=== PATIENT | male | born 1950 | race Caucasian/White ===

== ENCOUNTER 2018-12-10 09:29 | Outpatient (REF) | payer MEDICARE, MEDICAID, SELFPAY ==
[2018-12-10 21:12] LABS: HCT 44.8 % (40.0-50.0); HGB 15.4 g/dL (13.5-17.5); Mean Corp. HGB Concentration 34.4 g/dL (32.0-36.0); Mean Corpuscular Hemoglobin 30.8 pg (27.0-33.0); Mean Corpuscular Volume 89.6 fL (80-95); Mean Platelet Volume 10.6 fL (8.0-11.0); Platelet Count 245 x1000/uL (130-400); White Blood Cell Count 5.82 k/cumm (4.4-10.8)
[2018-12-10 21:37] LABS: ALT 52 U/L (12-78); AST 29 U/L (15-37); Alkaline Phosphatase 70 U/L (46-116); Anion Gap 14.1 mmol/L (3-11); BUN 26 mg/dL (7-18); Bilirubin, Total 0.6 mg/dL (0.2-1.0); CO2 21.9 mmol/L (21.0-32.0); CREATININE 1.02 mg/dL (0.70-1.30); Chloride 107 mmol/L (98-107); Glucose 97 mg/dL (70-100); Potassium 4.5 mmol/L (3.5-5.1); Sodium 143 mmol/L (136-145); TSH 1.54 uIU/mL (0.36-3.74); Total Protein 7.3 g/dL (6.4-8.2)
== END 2018-12-10 09:49 ==
LOC: NCHCN 09:29
PROVIDERS: PCP Specialist/Technologist Athletic Trainer; Visit Provider Nurse Practitioner Family
DX: R42 Dizziness and giddiness (principal); L29.9 Pruritus, unspecified; H93.19 Tinnitus, unspecified ear
CPT/HCPCS: 80053; 85027; 84443

== ENCOUNTER → 2019-01-04 08:02 | Outpatient (BNVA) | payer MEDICARE, MEDICAID, SELFPAY | PROVIDERS: PCP Specialist/Technologist Athletic Trainer; Visit Provider Urology | DX: N43.40 Spermatocele of epididymis, unspecified (principal); Z71.89 Other specified counseling | CPT/HCPCS: 99213 ==

== ENCOUNTER 2019-04-30 09:26 | Outpatient (REF) | payer MEDICARE, SELFPAY ==
[2019-04-30 19:46] LABS: Calculated LDL 150 mg/dL; Cholesterol 205 mg/dL (<200); HDL Cholesterol 34 mg/dL (40-60); Triglyceride 107 mg/dL (<150)
== END 2019-04-30 09:46 ==
LOC: NCHCN 09:26
PROVIDERS: PCP Specialist/Technologist Athletic Trainer; Visit Provider Nurse Practitioner Family
DX: E78.89 Other lipoprotein metabolism disorders (principal); Z13.6 Encounter for screening for cardiovascular disorders
CPT/HCPCS: 80061

== ENCOUNTER 2019-07-12 08:59 | Outpatient (REF) | payer MEDICARE, MEDICAID, SELFPAY ==
[2019-07-12 19:43] LABS: ALT 42 U/L (16-63); AST 26 U/L (15-37); Calculated LDL 145 mg/dL (<100); Cholesterol 200 mg/dL (<200); HDL Cholesterol 40 mg/dL (40-60); Triglyceride 78 mg/dL (<150)
[2019-07-12 20:35] LABS: Creatine Kinase 296 U/L (39-308)
== END 2019-07-12 09:19 ==
LOC: NCHCN 08:59
PROVIDERS: PCP Specialist/Technologist Athletic Trainer; Visit Provider Nurse Practitioner Family
DX: E78.5 Hyperlipidemia, unspecified (principal); L84 Corns and callosities
CPT/HCPCS: 80061; 82550; 84450; 84460

== ENCOUNTER 2020-05-24 15:33 | Outpatient (REF) | payer MEDICARE, SELFPAY ==
[2020-05-24 17:07] LABS: Anion Gap 13.1 mmol/L (3-11); BUN 18 mg/dL (7-18); CO2 22.9 mmol/L (21.0-32.0); Chloride 107 mmol/L (98-107); Creatine Kinase 303 U/L (39-308); Glucose 98 mg/dL (74-106); Potassium 3.9 mmol/L (3.5-5.1); Sodium 143 mmol/L (136-145); TSH 1.26 uIU/mL (0.36-3.74)
[2020-05-24 17:55] LABS: Calculated LDL 126 mg/dL (<100); Cholesterol 185 mg/dL (<200); HDL Cholesterol 43 mg/dL (40-60); Triglyceride 81 mg/dL (<150)
== END 2020-05-24 15:34 | disposition home or self-care (01) ==
LOC: NCHCN 15:33
PROVIDERS: PCP Specialist/Technologist Athletic Trainer; Visit Provider Nurse Practitioner Family
DX: E78.5 Hyperlipidemia, unspecified (principal); R42 Dizziness and giddiness
CPT/HCPCS: 80048; 80061; 82550; 84443

== ENCOUNTER 2020-07-19 02:06 | Outpatient (CLI) | payer MEDICARE, MEDICAID, SELFPAY ==
--- NOTE | 2020-07-19 | DI.MRI_ITS ---
EXAM: MR BRAIN WO CLINICAL HISTORY: VERTIGO,R42,VISION CHANGES,H53.9,H/O CERVICAL OA,HYPERTENSION,? TIA/STROKE TECHNIQUE: Multiplanar multisequence noninfused MRI of the brain was performed. COMPARISON: No exams were available for comparison FINDINGS: CEREBRAL PARENCHYMA: No evidence of intracranial hemorrhage, mass effect nor shift of midline structu re. No extraaxial fluid collections. Ventricles are not enlarged nor shifted. There is no significant focal signal abnormality in the cerebellar hemispheres nor within the rafi, m idbrain, and thalami. There is mild multifocal signal abnormality in the white matter adjacent to the atrium of both latera l ventricles, probably post ischemic but without acute signal on diffusion imaging. There is also a small CSF intensity finding in the left high white matter above ventricle which measures 3 x 2 millim eters, not associated with hemorrhage or surrounding edema nor abnormal signal on diffusion imaging. This probably chronic lacune. There is no significant focal signal abnormality evident on diffusion imaging to suggest acute ischem ic event. PITUITARY GLAND: No mass nor parasellar abnormality. No obvious abnormality in the cavernous sinuses. FLOW VOIDS: The expected flow void are noted. No evidence of obvious aneurysm nor obvious vascular ma lformation. The left vertebral artery is dominant. PARANASAL SINUSES: There is a small retention cyst in the medial wall of the right maxillary sinus. No fluid level. The frontal sinuses are not developed. ORBITS: No obvious findings. IMPRESSION: Nonspecific white matter findings probably post ischemic chronic small vessel disease. No evidence o f intracranial hemorrhage or acute territorial infarction. DATA REPOSITORY:
== END 2020-07-19 02:26 ==
PROVIDERS: PCP Nurse Practitioner Family; Visit Provider Nurse Practitioner Family
DX: R42 Dizziness and giddiness (principal); H53.8 Other visual disturbances; I10 Essential (primary) hypertension; R90.82 White matter disease, unspecified
CPT/HCPCS: 70551

== ENCOUNTER 2020-07-26 13:56 | Outpatient (REF) | payer MEDICARE, MEDICAID, SELFPAY ==
[2020-07-26 18:44] LABS: ALT 44 U/L (16-63); AST 30 U/L (15-37); HDL Cholesterol 47 mg/dL (40-60); LDL CHOLESTEROL 68 mg/dL (<100)
[2020-07-26 18:55] LABS: Creatine Kinase 302 U/L (39-308)
== END 2020-07-26 13:57 | disposition home or self-care (01) ==
LOC: NCHCN 13:56
PROVIDERS: PCP Nurse Practitioner Family; Visit Provider Nurse Practitioner Family
DX: E78.5 Hyperlipidemia, unspecified (principal)
CPT/HCPCS: 82550; 83721; 83718; 84450; 84460

== ENCOUNTER 2020-08-04 04:19 | Outpatient (CLI) | payer MEDICARE, MEDICAID, SELFPAY ==
--- NOTE | 2020-08-04 | DI.US_ITS ---
EXAM: US CAROTID CLINICAL HISTORY: VERTIGO,ABNL BRAIN MRI,? POST ISCHEMIC AREAS,HLP. TECHNIQUE: Ultrasound carotids performed using grayscale, color-flow, and spectral Doppler imaging. COMPARISON: No exams were available for comparison FINDINGS: RIGHT CAROTID ARTERY: Plaque: Minimal plaque in the carotid bulb. Intimal thickening is present. Velocity elevation: None. LEFT CAROTID ARTERY: Plaque: Minimal plaque in the carotid bulb. Intimal thickening is present. Velocity elevation: None. VERTEBRAL ARTERIES: Antegrade flow. Measurements: R Bulb: 67.5cm/s PS / 18.6cm/s ED R CCA: 63cm/s PS / 17.4cm/s ED R ECA: 93cm/s PS / 23cm/s ED R ICA Prox: 62.3cm/s PS /18.6cm/s ED R ICA Mid: 69.4cm/s PS / 33.4cm/s ED R ICA Distal: 67.8cm/s PS /30.5cm/s ED R Vert: 28.1cm/s PS / 7.9cm/s ED R SVR: 1.1 R DVR: 1.92 L Bulb: 39cm/s PS /10.1cm/s ED L CCA: 51.2cm/s PS / 15.3cm/s ED L ECA: 118.8cm/s PS /18.9cm/s ED L ICA Prox:58.5cm/s PS / 23.1cm/s ED L ICA Mid: 59cm/sPS / 26.8cm/s ED L ICA Distal: 76.3cm/s PS / 33.6cm/s ED L Vert: 32.3cm/s PS / 11.4cm/s ED L SVR: 1.49 L DVR: 2.2 IMPRESSION: No evidence for hemodynamically significant carotid stenosis. Criteria for Carotid Stenosis: Normal: ICA PSV <125 cm/s no plaque or intimal thickening is visible. <50% stenosis: ICA PSV <125 cm/s and plaque or intimal thickening is visible. 50-69% stenosis: ICA PSV is 125-250 cm/s and plaque is visible. >70% stenosis to near occlusion: ICA PSV >250 cm/s with visible plaque and luminal narrowing. DATA REPOSITORY:
== END 2020-08-04 04:39 ==
PROVIDERS: PCP Nurse Practitioner Family; Visit Provider Nurse Practitioner Family
DX: R42 Dizziness and giddiness (principal); R94.02 Abnormal brain scan
CPT/HCPCS: 93880

== ENCOUNTER 2020-10-04 04:28 | Outpatient (CLI) | payer MEDICARE, MEDICAID, SELFPAY ==
[2020-10-04 12:10] LABS: Abs Immature Grans 0.02 10^3/uL (0.0-0.06); Absolute Basophil Count 0.05 10^3/uL (0.0-0.2); Absolute Eosinophil Count 0.26 10^3/uL (0.0-0.7); Absolute Lymphocyte Count 1.81 10^3/uL (1.2-3.4); Absolute Monocyte Count 0.49 10^3/uL (0.1-0.8); Absolute Neutrophil Count 4.63 10^3/uL (1.2-6.7); Basophils % 0.7; Eosinophils % 3.6; HCT 45.1 % (40.0-50.0); HGB 15.6 g/dL (13.5-17.5); Immature Grans % 0.3; Lymphocytes % 24.9; MCH 31.1 pg (27.0-33.0); MCHC 34.6 % (32.0-36.0); MPV 9.7 fL (8.0-11.0); Monocytes % 6.7; Neutrophils % 63.8; Nucleated RBC 0 %; Platelet Count 238 10^3/uL (130-400); RBC 5.01 10^6/uL (4.36-5.78); RDW 12.2 % (11.8-14.1); RDW-SD 39.8 fL; WBC 7.26 10^3/uL (4.4-10.8)
[2020-10-04 13:14] LABS: Calculated LDL 91 mg/dL (<100); Cholesterol 158 mg/dL (<200); Folate 12.2 ng/mL (8.6-20.0); Glucose 100 mg/dL (74-106); HDL Cholesterol 47 mg/dL (40-60); TSH 1.83 uIU/mL (0.36-3.74); Triglyceride 100 mg/dL (<150); Vitamin B12 232 pg/mL (193-986)
[2020-10-05 11:11] LABS: Lyme Ab w Rflx to Lyme Confirm Negative (Negative)
[2020-10-05 14:00] LABS: ANA Interpretation Positive (Negative); ANA Titer Pattern 1:80 Speckled
== END 2020-10-04 04:29 | disposition home or self-care (01) ==
LOC: LBO 04:28
PROVIDERS: PCP Nurse Practitioner Family; Visit Provider Otolaryngology Otolaryngology/Facial Plastic Surgery
DX: R42 Dizziness and giddiness (principal); H43.393 Other vitreous opacities, bilateral; E78.5 Hyperlipidemia, unspecified; I10 Essential (primary) hypertension
CPT/HCPCS: 36415; 80061; 82947; 82565; 82607; 82746; 84443; 85025; 86038; 86618

== ENCOUNTER 2020-11-27 11:08 | Outpatient (REF) | payer MEDICARE, SELFPAY ==
[2020-11-27 20:20] LABS: ESR 16 mm/hr (0-20)
[2020-11-27 20:23] LABS: C-Reactive Protein 0.42 mg/dL (0.0-0.3)
== END 2020-11-27 11:09 | disposition home or self-care (01) ==
LOC: NCHCN 11:08
PROVIDERS: PCP Nurse Practitioner Family; Visit Provider Nurse Practitioner Family
DX: R89.9 Unspecified abnormal finding in specimens from other organs, systems and tissues (principal)
CPT/HCPCS: 85652; 86140

== ENCOUNTER 2020-11-27 14:09 | Outpatient (CLI) | payer MEDICARE, MEDICAID, SELFPAY ==
--- NOTE | 2020-11-27 | DI.RAD_ITS ---
Exam(s) XR ARTHRITIS SERIES EXAM: XR ARTHRITIS SERIESz CLINICAL HISTORY: JOINT PAIN M79.643 RHEUMATOID NODULES + ARIELLE. TECHNIQUE: 2D digital imaging was performed. COMPARISON: No exams were available for comparison FINDINGS: BONES: There is 20 base narrowing involving the interphalangeal joints of the fingers, greater in the distal interphalangeal joints. Joint space narrowing and spurring is also seen at the 1st carpal me tacarpal joints, greater on the left.. No acute fracture is present. Lucency the tuft of the the dis mohamud phalanx of the left 4th finger. JOINTS: No dislocation present. SOFT TISSUE: Mild calcification region of triangular fibrocartilage bilaterally. Calcification milad cent to the left 1st metacarpophalangeal joint, left 1st and 3rd carpal metacarpal joints and adjacen t to left radial styloid. IMPRESSION: Findings consistent with osteo arthritis at the 1st CMC joints bilaterally left greater than right.. Blessing articular soft tissue calcifications on the left. DATA REPOSITORY: RADIATION DOSE DELIVERED:
== END 2020-11-27 14:29 ==
PROVIDERS: PCP Nurse Practitioner Family; Visit Provider Nurse Practitioner Family
DX: M79.89 Other specified soft tissue disorders (principal); M06.349 Rheumatoid nodule, unspecified hand; M79.643 Pain in unspecified hand
CPT/HCPCS: 73120

== ENCOUNTER 2021-03-06 15:55 | Outpatient (REF) | payer MEDICARE, MEDICAID, SELFPAY ==
[2021-03-06 20:19] LABS: Bacteria Negative HPF (Negative); C & S Indicated? C&S Done As Ordered; Casts Negative LPF (Negative); Crystals Negative HPF (Negative); Epithelial Cells Negative HPF (Negative); Mucus Negative (Negative); Other Cells Negative (Negative); RBC 0-2 HPF (0-2); WBC 0-2 HPF (0-5)
[2021-03-06 20:28] LABS: HCT 43.6 % (40.0-50.0); HGB 14.8 g/dL (13.5-17.5); MCH 30.6 pg (27.0-33.0); MCHC 33.9 % (32.0-36.0); MCV 90.1 fL (80-95); MPV 10.9 fL (8.0-11.0); Platelet Count 225 10^3/uL (130-400); RBC 4.84 10^6/uL (4.36-5.78); RDW 11.9 % (11.8-14.1); RDW-SD 39.2 fL; WBC 8.13 10^3/uL (4.4-10.8)
[2021-03-06 20:44] LABS: Anion Gap 11.4 mmol/L (3-11); BUN 17 mg/dL (7-18); CO2 26.6 mmol/L (21.0-32.0); Calcium 8.9 mg/dL (8.5-10.1); Chloride 106 mmol/L (98-107); Glucose 83 mg/dL (74-106); Potassium 4.1 mmol/L (3.5-5.1); Sodium 144 mmol/L (136-145)
[2021-03-07 17:29] LABS: PSA, Diagnostic 1.5 ng/mL (0.0-4.5)
== END 2021-03-06 15:56 | disposition home or self-care (01) ==
LOC: NCHCN 15:55
PROVIDERS: PCP Nurse Practitioner Family; Visit Provider Nurse Practitioner Family
DX: R39.9 Unspecified symptoms and signs involving the genitourinary system (principal); Z01.818 Encounter for other preprocedural examination
CPT/HCPCS: 80048; 85027; 81015; 84153; 87086

== ENCOUNTER 2021-10-04 18:09 | Outpatient (REF) | payer MEDICARE, SELFPAY ==
[2021-10-04 15:24] LABS: Abs Immature Grans 0.01 10^3/uL (0.0-0.06); Absolute Basophil Count 0.04 10^3/uL (0.0-0.2); Absolute Eosinophil Count 0.13 10^3/uL (0.0-0.7); Absolute Lymphocyte Count 1.66 10^3/uL (1.2-3.4); Absolute Monocyte Count 0.42 10^3/uL (0.1-0.8); Absolute Neutrophil Count 3.32 10^3/uL (1.2-6.7); Basophils % 0.7; Eosinophils % 2.3; HGB 14.6 g/dL (13.5-17.5); Immature Grans % 0.2; Lymphocytes % 29.7; MCH 31.1 pg (27.0-33.0); MCHC 34.8 % (32.0-36.0); MCV 89 fL (80-95); MPV 10.1 fL (8.0-11.0); Monocytes % 7.5; Neutrophils % 59.6; Platelet Count 244 10^3/uL (130-400); RDW 12.1 % (11.8-14.1); RDW-SD 39.6 fL; WBC 5.58 10^3/uL (4.4-10.8)
[2021-10-04 16:06] LABS: ALT 50 U/L (16-63); AST 30 U/L (15-37); Albumin 3.8 g/dL (3.4-5.0); Alkaline Phosphatase 72 U/L (46-116); Anion Gap 11.1 mmol/L (3-11); BUN 20 mg/dL (7-18); Bilirubin, Total 0.5 mg/dL (0.2-1.0); CO2 21.9 mmol/L (21.0-32.0); CREATININE 1.2 mg/dL (0.70-1.30); Calcium 8.6 mg/dL (8.5-10.1); Chloride 108 mmol/L (98-107); Estimated GFR 59.86 (mL/min/1.73m2); Ferritin 181 ng/mL (26-388); Glucose 105 mg/dL (74-106); HDL Cholesterol 48 mg/dL (40-60); LDL CHOLESTEROL 81 mg/dL (<100); Magnesium 1.8 mg/dL (1.8-2.4); Sodium 141 mmol/L (136-145); TSH 1.66 uIU/mL (0.36-3.74); Vitamin B12 733 pg/mL (193-986)
[2021-10-04 16:34] LABS: Creatine Kinase 201 U/L (39-308); FREE T4 0.88 ng/dL (0.76-1.46)
== END 2021-10-04 18:10 | disposition home or self-care (01) ==
LOC: NCHCN 18:09
PROVIDERS: PCP Nurse Practitioner Family; Visit Provider Nurse Practitioner Family
DX: E78.5 Hyperlipidemia, unspecified (principal); R42 Dizziness and giddiness
CPT/HCPCS: 80053; 82550; 83721; 82607; 82728; 83718; 83735; 84439; 84443; 85025

== ENCOUNTER 2022-04-04 11:54 | Outpatient (REF) | payer MEDICARE, SELFPAY ==
[2022-04-04 15:26] LABS: HCT 44.3 % (40.0-50.0); HGB 15.2 g/dL (13.5-17.5); MCH 30.5 pg (27.0-33.0); MCHC 34.3 % (32.0-36.0); MCV 89 fL (80-95); MPV 10.5 fL (8.0-11.0); Platelet Count 225 10^3/uL (130-400); RBC 4.98 10^6/uL (4.36-5.78); RDW 12.2 % (11.8-14.1); RDW-SD 39.8 fL; WBC 7.86 10^3/uL (4.4-10.8)
[2022-04-04 15:30] LABS: ESR 8 mm/hr (0-20)
[2022-04-04 15:46] LABS: C-Reactive Protein 0.07 mg/dL (0.0-0.3)
[2022-04-05 10:07] LABS: Lyme Ab w Rflx to Lyme Confirm Negative (Negative)
== END 2022-04-04 11:55 | disposition home or self-care (01) ==
LOC: NCHCN 11:54
PROVIDERS: PCP Nurse Practitioner Family; Visit Provider Nurse Practitioner Family
DX: H92.01 Otalgia, right ear (principal); R42 Dizziness and giddiness
CPT/HCPCS: 85027; 85652; 86140; 86618

== ENCOUNTER 2022-04-30 01:40 | Outpatient (CLI) | payer MEDICARE, SELFPAY ==
--- NOTE | 2022-04-30 | DI.MRI_ITS ---
Exam(s) MR ORBIT FACIAL NECK WO/W EXAM: MR ORBIT FACIAL NECK WO/W CLINICAL HISTORY: SCALP PAIN,R52,RT OTALGIA,H92.01,? TRIGEMINAL NEURALGIA TECHNIQUE: Multiplanar multisequence MRI of the brain was performed. CONTRAST MATERIAL: IV Contrast: 20 mL of Dotarem contrast administered. COMPARISON: MR MR BRAIN WO from 07/19/2020 FINDINGS: The examination is limited due to patient motion artifact. VENTRICLES AND EXTRA AXIAL SPACES: Normal in size and morphology for the patient's age. CEREBRAL PARENCHYMA: There are stable foci of hyperintense signal seen in the white matter on the FLA IR images likely reflecting small vessel ischemic disease. No space-occupying lesion identified. MIDLINE SHIFT: None. BRAINSTEM/CEREBELLUM: Normal. CALVARIUM: Normal. ENHANCEMENT: No suspicious enhancement identified. VISUALIZED PARANASAL SINUSES/MASTOIDS: There is a small mucous retention cyst or polyp in the right m axillary sinus. There is mild mucosal thickening in the visualized paranasal sinuses. No air-fluid levels are seen. [place]: Normal flow void. PITUITARY GLAND: Unremarkable. OTHER FINDINGS: The midbrain and cranial nerve 5 appear grossly unremarkable. Meckel's cave is unrem arkable. The orbits and retro-orbital soft tissues are unremarkable. IMPRESSION: 1. No intracranial mass or enhancing lesion. 2. Stable white matter hyperintense foci likely reflecting small vessel ischemic disease. DATA REPOSITORY:
[2022-04-30 08:25] LABS: CREATININE 1.1 mg/dL (0.70-1.30); Estimated GFR 71.77 (mL/min/1.73m2); TROPONIN-I 6.1 ug/mL (4.0-12.0)
[2022-04-30] MEDS: Normal Saline Flush 10 ML SYR IVP (08:31)
[2022-04-30] MEDS: Gadoterate meglumine 20 ML SYRINGE IVP (08:32)
== END 2022-04-30 02:00 ==
PROVIDERS: PCP Nurse Practitioner Family; Visit Provider Nurse Practitioner Family
DX: H92.01 Otalgia, right ear (principal); R52 Pain, unspecified
CPT/HCPCS: 70543; 80156; 82565

== ENCOUNTER 2023-02-19 10:33 | Outpatient (REF) | payer MEDICARE, SELFPAY ==
[2023-02-19 16:24] LABS: ALT 32 U/L (16-63); AST 28 U/L (15-37); Albumin 4.1 g/dL (3.4-5.0); Alkaline Phosphatase 72 U/L (46-116); Anion Gap 9.8 mmol/L (3-11); BUN 25 mg/dL (7-18); Bilirubin, Total 0.6 mg/dL (0.2-1.0); CO2 23.2 mmol/L (21.0-32.0); CREATININE 1.1 mg/dL (0.70-1.30); Calcium 9.4 mg/dL (8.5-10.1); Chloride 106 mmol/L (98-107); Creatine Kinase 188 U/L (39-308); Estimated GFR 71.77 (mL/min/1.73m2); Glucose 105 mg/dL (74-106); Sodium 139 mmol/L (136-145); Total Protein 7.7 g/dL (6.4-8.2)
[2023-02-19 16:37] LABS: HDL Cholesterol 51 mg/dL (40-60); LDL CHOLESTEROL 88 mg/dL (<100)
== END 2023-02-19 10:34 | disposition home or self-care (01) ==
LOC: NCHCN 10:33
PROVIDERS: PCP Nurse Practitioner Family; Visit Provider Nurse Practitioner Family
DX: E78.5 Hyperlipidemia, unspecified (principal)
CPT/HCPCS: 80053; 82550; 83721; 83718

== ENCOUNTER → 2023-02-20 01:16 | Outpatient (CLI) | payer MEDICARE, SELFPAY ==
--- NOTE | 2023-02-20 | DI.US_ITS ---
Exam(s) US CAROTID EXAM: US CAROTID CLINICAL HISTORY: DIZZY SPELLS, R42. TECHNIQUE: Ultrasound carotids performed using grayscale, color-flow, and spectral Doppler imaging. COMPARISON: US US CAROTID from 08/04/2020 FINDINGS: RIGHT CAROTID ARTERY: Plaque: There is calcific plaque seen in the common carotid artery, the proximal ICA and carotid bulb . Velocity elevation: None. LEFT CAROTID ARTERY: Plaque: There is calcific plaque seen in the carotid bulb. Velocity elevation: None. VERTEBRAL ARTERIES: Antegrade flow. Measurements: R Bulb: 57.3cm/s PS / 13.8cm/s ED R CCA: 87.4cm/s PS / 23.5cm/s ED R ECA: 125.8cm/s PS / 4.1cm/s ED R ICA Prox: 63.6cm/s PS / 18.3cm/s ED R ICA Mid: 69cm/s PS / 21.7cm/s ED R ICA Distal: 93.2cm/s PS /22.9cm/s ED R Vert: 12.6cm/s PS / 6.5cm/s ED R SVR: 1.1 R DVR: 1 L Bulb: 75cm/s PS / 20.6cm/s ED L CCA: PS / 24.5cm/s ED L ECA: 144.6cm/s PS / 6.1cm/s ED L ICA Prox: 60cm/s PS / 19.6cm/s ED L ICA Mid: 63.2cm/s PS / 20.9cm/s ED L ICA Distal: 73.7cm/s PS / 26cm/s ED L Vert: 68.8cm/s PS / 28.3cm/s ED L SVR: 0.9 L DVR: 0.8 IMPRESSION: No evidence for hemodynamically significant carotid stenosis. Criteria for Carotid Stenosis: Normal: ICA PSV <125 cm/s no plaque or intimal thickening is visible. <50% stenosis: ICA PSV <125 cm/s and plaque or intimal thickening is visible. 50-69% stenosis: ICA PSV is 125-250 cm/s and plaque is visible. >70% stenosis to near occlusion: ICA PSV >250 cm/s with visible plaque and luminal narrowing. DATA REPOSITORY:
== END ==
PROVIDERS: PCP Nurse Practitioner Family; Visit Provider Nurse Practitioner Family
DX: R42 Dizziness and giddiness (principal)
CPT/HCPCS: 93880

== ENCOUNTER 2023-07-29 08:27 | Outpatient (CLI) | payer MEDICARE, MEDICAID, SELFPAY | END 2023-07-29 08:28 | disposition home or self-care (01) | LOC: CARDOPNVT 08:27 | PROVIDERS: PCP Nurse Practitioner Family; Visit Provider Nurse Practitioner Family | DX: R07.9 Chest pain, unspecified (principal) | CPT/HCPCS: 93246 ==

== ENCOUNTER → 2023-07-31 13:15 | Outpatient (BNVA) | payer MEDICARE, SELFPAY | PROVIDERS: PCP Nurse Practitioner Family; Referring Provider Nurse Practitioner Family; Visit Provider Podiatrist | DX: M67.01 Short Achilles tendon (acquired), right ankle (principal); M67.02 Short Achilles tendon (acquired), left ankle; B35.1 Tinea unguium; L84 Corns and callosities; M79.671 Pain in right foot; M25.561 Pain in right knee | CPT/HCPCS: 99203 ==

== ENCOUNTER → 2023-07-31 15:02 | Outpatient (CLI) | payer MEDICARE, MEDICAID, SELFPAY ==
--- NOTE | 2023-07-31 15:15 | DI.RAD_ITS ---
Exam(s) XR FOOT RT COMPLETE EXAM: XR FOOT RT COMPLETE CLINICAL HISTORY: foot pain R > L, ? osteoarthritis,m79.673. TECHNIQUE: 2D digital imaging was performed of the right foot. Three images were obtained. AP, obl ique and lateral views were obtained. COMPARISON: No exams were available for comparison FINDINGS: BONES: No acute fracture is present. No bony destructive lesion is seen. There is a small enthesophyt e at the posterior calcaneus. There is a small plantar calcaneal spur. JOINTS: No dislocation present. Moderately severe degenerative changes are seen at the 1st metatarsop halangeal joint. There is an osteophyte on the dorsal aspect of the head of the 1st metatarsal bone. SOFT TISSUE: Vascular calcifications are present. IMPRESSION: Degenerative changes of the foot. DATA REPOSITORY: RADIATION DOSE DELIVERED:
--- NOTE | 2023-07-31 15:22 | DI.RAD_ITS ---
Exam(s) XR FOOT LT COMPLETE EXAM: XR FOOT LT COMPLETE CLINICAL HISTORY: foot pain R > L, ? osteoarthritis,M79.673. TECHNIQUE: 2D digital imaging was performed of the left foot. Three images were obtained. AP, obli que and lateral views were obtained. COMPARISON: No exams were available for comparison FINDINGS: BONES: No acute fracture is present. No bony destructive lesion is seen. There is a small enthesophyt e at the posterior calcaneus. JOINTS: No dislocation present. Moderately severe degenerative changes are seen at the 1st metatarsop halangeal joint. There is a small it size osteophyte on the dorsal aspect of the head. There is a w ell corticated osseous density seen at the dorsal aspect of the 1st MTP joint which appears chronic. SOFT TISSUE: Vascular calcifications are present. IMPRESSION: Degenerative changes of the foot. DATA REPOSITORY: RADIATION DOSE DELIVERED:
== END ==
PROVIDERS: PCP Nurse Practitioner Family; Visit Provider Podiatrist
DX: M79.671 Pain in right foot (principal); M79.672 Pain in left foot; M19.071 Primary osteoarthritis, right ankle and foot; M19.072 Primary osteoarthritis, left ankle and foot; M77.32 Calcaneal spur, left foot; M77.31 Calcaneal spur, right foot
CPT/HCPCS: 99203; 73630

== ENCOUNTER → 2023-08-18 01:07 | Outpatient (CLI) | payer MEDICARE, MEDICAID, SELFPAY ==
--- NOTE | 2023-08-18 | DI.NM_ITS ---
APPROVED REPORT Exam: Pharmacologic Patient Location: Out-Patient Room/Bed: Stress Nurse: Jaren Chapman RN Ordering Provider:WALTER DENNIS, Contact Number: [phone] BMI: 33.22 Baseline Rhythm: Sinus Rhythm Indications: Chest pain. Medical History Medical History: HLD, HTN. Cardiac Medications: Albuterol, Atorvastatin, ASA., Allergies: No known drug allergies Cardiac Risk Factors: HTN, Hyperlipidemia Pretest Chest Pain Characteristics: No chest pain Exercise History: Indeterminate Lung Sounds: Clear to auscultation Heart Sounds: Regular Stress Test Details Test: Pharmacologic stress was paired with low level exercise. Rest Isotope: Tc-99m Sestamibi. Dose: 10.5 Date: 08/18/2023 Injection Time: 0905 Stress Isotope: Tc-99m Sestamibi. Dose: 32.0 Date: 08/18/2023 Injection Time: 1120 HR Resting HR Supine: 59 bpm Max Heart Rate (APMHR): 148.816498 bpm Resting HR Standin bpm Target HR (85% APMHR): 125.726588 bpm Max HR Achieved: 102 bpm % of APMHR: 68.92 Recovery HR: 71 bpm HR response to stress: Normal HR response to stress BP Resting BP Supine: 162/82 mmHg Resting BP Standin/82 mmHg Max BP: 162/82 mmHg Recovery BP: 136/80 mmHg BP response to stress: Normal blood pressure response to stress. ECG Resting ECG: Sinus Rhythm Ectopy: Rare PAC's and PVC's. Stress ECG: Sinus Tachycardia, Sinus Rhythm ST Change: No significant ST segment changes noted Arrhythmia: Rare PAC's and PVC's. Recovery ECG: Sinus Rhythm Recovery Arrhythmia: None Clinical Reason for Termination: Fatigue Stress Symptoms: General Fatigue Exercise duration: 2 min58 sec Exercise capacity: 2.07 METs Angina Score: None Lowery Treadmill Score: 3.6 Rate Pressure Product: [id number] Stress ECG Conclusion 1. 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 Patient underwent testing using pharmacologic stress with regadenoson 3. The electrocardiographic portion of the test was nondiagnostic 4. Atrial and ventricular ectopic beats were noted 5. See MPI report Lowery Treadmill Score is 3.6 which is Moderate risk. Stress Test Summary STAGE HR BP SpO2 Symptoms NOTES Supine 59 162/82 Standing 62 152/82 1 min post Lexiscan injection 98 3 min post Lexiscan injection 76 140/72 6 min post Lexiscan injection 71 136/80 MPI Conclusion Myocardial perfusion is normal. There is no ischemia or evidence of prior infarction EF 50%, normal wall motion Radiologist Interpretation Radiologist agrees with [facility]'s Interpretation. Radiologist Interpretation by: Michael Arvizu MD Interpretation Date/Time: 08/20/2023 08:06:08
[2023-08-18] MEDS: Regadenoson 0.4 MG/5 ML SYR IVP (11:59)
== END ==
PROVIDERS: PCP Nurse Practitioner Family; Visit Provider Nurse Practitioner Family
DX: R07.9 Chest pain, unspecified (principal); I45.10 Unspecified right bundle-branch block; I44.4 Left anterior fascicular block; I49.3 Ventricular premature depolarization; I49.1 Atrial premature depolarization
CPT/HCPCS: 78452; 93016; 93018; 93017; J2785

== ENCOUNTER 2023-08-18 09:47 | Outpatient (CLI) | payer MEDICARE, MEDICAID, SELFPAY ==
--- NOTE | 2023-08-18 11:00 | W.CARDEVENT ---
Date of service: 08/18/23 Time of Service: 11:00 Cardiac Event Recorder Referring Provider:: Kyra Mendoza Indications:: Chest pain Cardiac Event Note: This is a cardiac event monitor. Patient was monitored for 12 days and 1 hour Rhythm throughout was sinus with an average heart rate of 66. Minimum was 35, maximum 124 There were rare ventricular ectopic beats. There was 1 run of nonsustained ventricular tachycardia 7 beats in length There were occasional atrial premature beats. Self-limited atrial runs occurred. The longest of these was 14 beats in duration. Majority were 4 to 6 beats There was no atrial fibrillation, no high-grade AV block, no pauses greater than 3 seconds Patient's symptoms correlated to sinus rhythm rate 98
== END 2023-08-18 09:48 | disposition home or self-care (01) ==
LOC: CARDOPNVT 09:47
PROVIDERS: PCP Nurse Practitioner Family; Visit Provider Internal Medicine Cardiovascular Disease
DX: R07.9 Chest pain, unspecified (principal); I49.1 Atrial premature depolarization; I47.10 Supraventricular tachycardia, unspecified
CPT/HCPCS: 93248

== ENCOUNTER 2023-09-30 08:41 | Emergency (ER) | payer MEDICARE, MEDICAID, SELFPAY ==
[2023-09-30 08:42] VITALS: BP 140/82; PULSE 67; RESP 15; TEMP 36.3; O2SAT 99
[2023-09-30 08:47] VITALS: BP 140/82; PULSE 67; RESP 15; O2SAT 99
--- NOTE | 2023-09-30 09:03 | W.ED.GENAD ---
Discharge Plan Disposition Patient Disposition: Home Condition: Stable Discharge Details Clinical Impression: Pneumonia due to COVID-19 virus Primary Care Provider: Bibi Yeung ED Provider: Payal Villar Home Meds and New Rx's Prescriptions: New doxycycline hyclate 100 mg capsule 100 mg PO BID 10 Days Qty: 20 0RF Rx Instructions: Take 1 capsule twice daily by mouth x 10 days with yogurt or probiotic as directed. Continued albuterol sulfate 90 mcg/actuation HFA aerosol inhaler 2 puff inhalation Q4[place] [address] plus 1.1% dental cream dental ketoconazole 2 % cream 1 applic topical DAILY Qty: 120 6RF Rx Instructions: Apply to toenails once daily aspirin 81 mg tablet,delayed release (DR/EC) 81 mg PO DAILY diclofenac potassium 50 mg tablet 50 mg PO TID PRN atorvastatin [Lipitor] 10 mg tablet 10 mg PO QHS multivitamin Tablet 1 tab PO DAILY meclizine 25 mg tablet 50 mg PO BID PRN cyanocobalamin (vitamin B-12) 500 mcg lozenge 500 mcg PO DAILY Discharge Instructions Instructions: COVID-19 overview, Pneumonia (ED) Additional Instructions: At this time you have been tested positive for COVID-19. Please take the antibiotic twice daily as directed with yogurt or probiotic. Follow up with primary care provider in7-10 days. Return to ED sooner if any worsening or concerns. Continue to wear a mask when out and about or around babies or the elderly. May consider purchasing a pulse oximeter to check your oxygen saturation. Please return to the ER if it continues to be less than 90% for at least 15 minutes or more. Continue to use your albuterol inhaler 1 or 2 puffs every 4-6 hours as needed for shortness of breath and wheezing. Referrals: Bibi Yeung [Primary Care Provider] - 2 weeks (For Covid Pneumonia re-check) HPI General Mode of arrival: ambulatory. Date/Time Provider Initiated Documentation: 09/30/23 08:45. Limitations to Documentation: no limitations. Information obtained by: patient, RN notes reviewed and old records reviewed. HPI Narrative: 73-year-old male presents to the ER with a chief complaint of productive cough and URI type symptoms for the last 3 weeks. He reports chills no documented fever. Denies any chest pain nausea vomiting or diarrhea. He has been taking Mucinex and aspirin at home. He also reports decreased appetite and she was losing 25 pounds in the last 2 weeks. He reports that his SO just recently recovered from a URI which was similar. He is alert and oriented x 4. PMHX Adjustment disorder, Kidney stones, and recently had a normal stress test approx 6 weeks ago. Related Data Home Medications Medication Instructions Recorded Confirmed aspirin 81 mg tablet,delayed 81 mg PO DAILY 11/06/22 07/31/23 release atorvastatin 10 mg tablet (Lipitor) 10 mg PO QHS 11/06/22 07/31/23 cyanocobalamin (vitamin B-12) 500 500 mcg PO DAILY 11/06/22 07/31/23 mcg lozenges diclofenac potassium 50 mg tablet 50 mg PO TID PRN 11/06/22 07/31/23 meclizine 25 mg tablet 50 mg PO BID PRN 11/06/22 07/31/23 multivitamin 1 tab PO DAILY 11/06/22 07/31/23 albuterol sulfate 90 mcg/actuation 2 puff inhalation Q4H PRN 07/28/23 07/31/[address] [place] [address] plus 1.1% dental cream dental 07/28/23 07/31/23 ketoconazole 2 % topical cream 1 applic topical DAILY #120 grams 07/31/23 07/31/23 doxycycline hyclate 100 mg capsule 100 mg PO BID Pneumonia 10 days 09/30/23 #20 caps Previous Rx's Medication Instructions Recorded ketoconazole 2 % topical cream 1 applic topical DAILY #120 grams 07/31/23 doxycycline hyclate 100 mg capsule 100 mg PO BID Pneumonia 10 days 09/30/23 #20 caps Allergies Allergy/AdvReac Type Severity Reaction Status Date / Time No Known Allergies Allergy Unverified 07/31/23 13:50 General Stated Complaint: RespSymp AR: 3 Review of Systems All systems reviewed & are unremarkable except as noted in HPI and below Cardiovascular Cardiovascular: Denies chest pain and Reports dyspnea Respiratory Respiratory: Reports change in phlegm color, Reports chest congestion, Reports cough, Denies hemoptysis and Reports dyspnea Course Vital Signs Vital signs: Vital Signs Temperature 36.3 C L 09/30/23 08:42 Pulse 67 09/30/23 08:42 Respiratory Rate 15 09/30/23 08:42 Blood Pressure 140/82 09/30/23 08:42 Pulse Oximetry 99 09/30/23 08:42 Temperature 36.3 C L 09/30/23 08:42 Temperature Source Temporal Artery Scan 09/30/23 08:42 Pulse 67 09/30/23 08:47 Respiratory Rate 15 09/30/23 08:47 Respiratory Effort Normal 09/30/23 08:47 Blood Pressure 140/82 09/30/23 08:47 Blood Pressure Position Sitting 09/30/23 08:47 Pulse Oximetry 99 09/30/23 08:47 Oxygen Delivery Method Room Air 09/30/23 08:47 Oxygen Flow Rate 0 09/30/23 08:47 Pain Level 0 09/30/23 08:47 Medical Decision Making 73-year-old male presents to the ER with a chief complaint of productive cough and URI type symptoms for the last 3 weeks. He reports chills no documented fever. Denies any chest pain nausea vomiting or diarrhea. He has been taking Mucinex and aspirin at home. He also reports decreased appetite and she was losing 25 pounds in the last 2 weeks. He reports that his SO just recently recovered from a URI which was similar. He is alert and oriented x 4. PMHX Adjustment disorder, Kidney stones, and recently had a normal stress test approx 6 weeks ago. Patient is COVID-positive, symptoms started approximately 3 weeks ago so patient is out of the window of Paxlovid. He also does have right middle lobe infiltrate on the chest x-ray. Will treat for COVID-pneumonia. Will give doxycycline 100 mg twice daily for the next 10 days. Patient remained hemodynamically stable throughout the remainder of his stay. Discussed home care strict return instructions with patient who verbalized understanding. This text was generated using [employer] system, please disregard any oddities of phrase or misspellings. Medical Records Medical records reviewed: Yes I reviewed the patient's medical records. Imaging Data Radiologic Study: Imaging: X-Ray and CT Scan My impression: I concur, RML or RLL infiltrate Radiologist's impression: EXAM: XR CHEST 2V PA LATERAL CLINICAL HISTORY: Productive cough TECHNIQUE: 2D digital imaging was performed of the chest. Two images were obtained. PA and lateral views were obtained. COMPARISON: No exams were available for comparison FINDINGS: MEDIASTINUM: Normal. HEART: Normal. PULMONARY VASCULATURE: Normal. LUNGS: Question of an infiltrate in the right lung base medially. This may lie within the right middle lobe. PLEURAL SPACE: No pleural effusion or pneumothorax. BONE:Within normal limits for the patient's age. OTHER FINDINGS:Normal. IMPRESSION: Question of a right middle lobe infiltrate. Lab Data Lab results reviewed: Yes I reviewed the patient's lab results. Labs: Laboratory Tests Range/Units 09/30/23 09:10 COVID-19 Source Nasopharynx SARS-CoV-2 (PCR) (Negative) Positive A Influenza Type A (PCR) (Negative) Negative Influenza Type B (PCR) (Negative) Negative RSV (PCR) (Negative) Negative Quality:SDOH Health Related Social Needs: No Data to Display PFSH All Active Problems (Updated 09/30/23 @ 10:18 by Payal Villar NP) Pneumonia due to COVID-19 virus (Acute) Pain in right foot (Acute) Corns and callosities (Acute) Onychomycosis (Acute) Right knee pain (Acute) Achilles tendon contracture, bilateral (Acute) Paresthesia (Acute) Hyperlipidemia (Acute) Hand pain (Acute) Anxiety disorder (Acute) Melanocytic nevus (Acute) Inguinal hernia (Acute) 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 Brother Alzheimer disease Brother , 62 [place] Myocardial infarction Sister Alive and well Sister Alive and well Son , hit by tractor trailer while on bicycle No problems noted. Social History Smoking/Tobacco Use Status: Never Smoking risk assessment performed?: Yes Alcohol Intake: current Drug use: Occasionally Substance use type: marijuana Household members: none current occupation: [employer] What is your relationship status?: Panel score (0-1 are the most socially isolated patients): 0
--- NOTE | 2023-09-30 09:14 | DI.RAD_ITS ---
Exam(s) XR CHEST 2V PA LATERAL EXAM: XR CHEST 2V PA LATERAL CLINICAL HISTORY: Productive cough TECHNIQUE: 2D digital imaging was performed of the chest. Two images were obtained. PA and lateral views were obtained. COMPARISON: No exams were available for comparison FINDINGS: MEDIASTINUM: Normal. HEART: Normal. PULMONARY VASCULATURE: Normal. LUNGS: Question of an infiltrate in the right lung base medially. This may lie within the right midd le lobe. PLEURAL SPACE: No pleural effusion or pneumothorax. BONE:Within normal limits for the patient's age. OTHER FINDINGS:Normal. IMPRESSION: Question of a right middle lobe infiltrate. DATA REPOSITORY: RADIATION DOSE DELIVERED:
[2023-09-30 10:00] LABS: Influenza A PCR Negative (Negative); Influenza B PCR Negative (Negative); RSV PCR Negative (Negative)
[2023-09-30 10:04] LABS: COVID-19 PCR Positive (Negative); Source Nasopharynx
[2023-09-30 10:29] VITALS: BP 154/89; PULSE 59; RESP 18; O2SAT 98
[2023-09-30] MEDS: Doxycycline Hyclate 100 MG CAP PO (10:36)
== END 2023-09-30 10:36 | disposition home or self-care (01) ==
PROVIDERS: Emergency Provider Registered Nurse Emergency; PCP Nurse Practitioner Family
DX: R63.4 Abnormal weight loss (principal); U07.1 COVID-19; J12.82 Pneumonia due to coronavirus disease 2019; Z79.82 Long term (current) use of aspirin
CPT/HCPCS: 87637; 99284; 71046; 99283

== ENCOUNTER → 2023-10-20 09:35 | Outpatient (BNVA) | payer MEDICARE, MEDICAID, SELFPAY | PROVIDERS: PCP Nurse Practitioner Family; Referring Provider Nurse Practitioner Family; Visit Provider Student in an Organized Health Care Education/Training Program | DX: M17.11 Unilateral primary osteoarthritis, right knee (principal) | CPT/HCPCS: 99213 ==

== ENCOUNTER → 2024-01-28 10:31 | Outpatient (BNVA) | payer MEDICARE, MEDICAID, SELFPAY | PROVIDERS: PCP Nurse Practitioner Family; Referring Provider Nurse Practitioner Family; Visit Provider Nurse Practitioner Adult Health | DX: G56.01 Carpal tunnel syndrome, right upper limb (principal) | CPT/HCPCS: 95908; 99214 ==

== ENCOUNTER 2024-02-23 15:06 | Outpatient (CLI) | payer MEDICARE, MEDICAID, SELFPAY ==
--- NOTE | 2024-02-23 08:45 | DI.RAD_ITS ---
Exam(s) XR HAND LT COMPLETE EXAM: XR HAND LT COMPLETE CLINICAL HISTORY: left thumb pain. TECHNIQUE: 2D digital imaging was performed of the left hand. Three views were obtained. AP, later al and oblique views were obtained. COMPARISON: CR XR ARTHRITIS SERIES from 11/27/2020 FINDINGS: BONES: No acute fracture is present. No bony destructive lesion is seen. JOINTS: No dislocation present. Chondrocalcinosis is seen in the wrist. Degenerative changes are see n in the hand and wrist. In the hand, in the wrist there is joint space narrowing and osteophytes se en at the 1st CMC joint. Subchondral cyst is seen at the base of the 1st metacarpal. The findings h ave mildly advanced since examination from 2020. There are findings of joint space narrowing and ost eophytes predominantly involving the DIP joints. SOFT TISSUE: Normal. 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 The find ings are most marked at the 1st CMC joint. The findings have progressed since examination from 2020. DATA REPOSITORY: RADIATION DOSE DELIVERED:
== END 2024-02-23 15:07 | disposition home or self-care (01) ==
LOC: DIORS 15:06
PROVIDERS: PCP Nurse Practitioner Family; Referring Provider Nurse Practitioner Family; Visit Provider Student in an Organized Health Care Education/Training Program
DX: G56.01 Carpal tunnel syndrome, right upper limb; M18.12 Unilateral primary osteoarthritis of first carpometacarpal joint, left hand; M65.331 Trigger finger, right middle finger
CPT/HCPCS: 99213; 73130

== ENCOUNTER 2024-03-03 08:18 | Day surgery (SDC) | payer MEDICARE, MEDICAID, SELFPAY ==
--- NOTE | 2024-03-03 07:25 | PDOC.DSDIS_ITS ---
Date of service: 03/03/24 Time of Service: 07:25 Discharge Plan Disposition Patient Disposition: Home Condition: Good Discharge Details Reason For Visit: RMF Trigger Release, R ECTR Attending Provider: Wilfrid Brizuela Primary Care Provider: Kyra Mendoza Home Meds and New Rx's Prescriptions: New hydrocodone-acetaminophen 5-325 mg tablet 1 tab PO Q6H PRN (Reason: pain) Qty: 4 0RF acetaminophen 500 mg tablet 1,000 mg PO TID Qty: 90 0RF Continued albuterol sulfate 90 mcg/actuation HFA aerosol inhaler 2 puff inhalation Q4H PRN fluoride (sodium) [SF 5000 Plus] 1.1 % cream 1 applic dental DAILY aspirin 81 mg tablet,delayed release (DR/EC) 81 mg PO DAILY diclofenac potassium 50 mg tablet 50 mg PO TID PRN atorvastatin [Lipitor] 10 mg tablet 10 mg PO QHS multivitamin Tablet 1 tab PO DAILY meclizine 25 mg tablet 50 mg PO BID PRN cyanocobalamin (vitamin B-12) 500 mcg lozenge 500 mcg PO DAILY Discharge Instructions Additional Instructions: Continue your diclofenac as an anti-inflammatory. Stand Alone Forms: [place] C. Tunnel Release, [place] T. Finger Release Referrals: Wilfrid Brizuela MD [ [facility] STAFF PHYSICIAN] - Activity:: Activity as Tolerated Remove Dressings/Wound Care:: 48 hours Shower/Bathe:: 48 hours Diet:: As Tolerated Discharge Orders Discharge Orders: Discharge Order (Routine); Ordered 03/03/24 Ordered By: Nehemiah Lloyd DS: Diagnosis Discharge Diagnosis (1) Trigger finger, right middle finger: Status: Acute (2) Right carpal tunnel syndrome: Status: Acute
[2024-03-03 08:30] VITALS: BP 148/98; PULSE 70; RESP 20; TEMP 36.6; O2SAT 99
[2024-03-03] MEDS: Acetaminophen 500 MG TAB 1000 MG PO (09:10)
[2024-03-03] MEDS: Cephalexin 500 MG CAP 1000 MG PO (09:10)
[2024-03-03] MEDS: Celecoxib 200 MG CAP 400 MG PO (09:10)
[2024-03-03] MEDS: Sodium Bicarbonate 50 MEQ/50 ML VIAL (09:47)
[2024-03-03] MEDS: Lidocaine 1% Multi-Dose W/EPI 1/100,000 50 ML VIAL (09:47)
[2024-03-03 10:05] VITALS: BP 156/91; PULSE 63; RESP 18; TEMP 36.2; O2SAT 97
--- NOTE | 2024-03-03 10:21 | ROE_ITS ---
Date of service: 03/03/24 Time of Service: 09:30 Operative Note Operative Note DATE OF PROCEDURE: 03/04/24 PRE-OP DIAGNOSIS: Right Carpal Tunnel Syndrome Right Middle Finger Trigger Finger POST-OP DIAGNOSIS: same PROCEDURE: Right Endoscopic Carpal Tunnel Release Right Middle Finger Trigger Release SURGEON: Wilfrid Brizuela ANESTHESIA TYPE: Local By Surgeon Refer to Anesthesia Record ESTIMATED BLOOD LOSS: 5 PATHOLOGY: none sent TOURNIQUET TIME: 5 COMPLICATIONS: None Patient was transported to: same day Patient's condition: stable Indications: I have seen Eduard in clinic for symptoms of carpal tunnel syndrome. The numbness, tingling, and pain limited function. Clinical exam findings confirmed the diagnosis of carpal tunnel syndrome. Nonoperative measures such as bracing, time, activity modifications had been tried but disability and pain persisted. He also had ongoing locking and triggering of the middle finger which was interfering with daily function. I discussed carpal tunnel trigger finger release with the patient. I reviewed the risks of the procedure to include, but not limited to, bleeding, infection, pain, stiffness, incomplete release, damage to nerves or vessels, persistent numbness, recurrence. Despite these risks, the patient elected to proceed. Findings: There was tightened carpal tunnel. This was dilated and released successfully with the endoscopic with increased space within the tunnel. The antebrachial fascia was released proximally freeing the median nerve at the wrist. The middle finger trigger was released without difficulty. Procedure Description: Eduard was greeted in the preoperative holding area where the correct side was identified and marked. The consent was reviewed with the patient and signed. The history and physical was updated. All questions were answered. Eduard was taken back to the operating room. The patient was placed into the supine position on the operating room table with the right arm on an arm board. A nonsterile tourniquet was placed high onto the arm. All bony prominences were well padded. Prophylactic antibiotics in the form of Cephalexin were administered. The right arm was then prepped with Chloraprep and draped in a standard fashion with stockinette and extremity drape. A timeout to confirm correct identity, side and site, procedure, allergies, anesthesia, and medical concerns was performed. The surgical site was marked as a longitudinal incision directly over the A1 patric of the involved digit, right middle finger. This was confirmed with palpation during finger flexion. This area, overlying the metacarpal head, was then anesthetized with 1% Lidocaine. The carpal tunnel surgical site was marked in the volar wrist creases in line with the radial border of the fourth ray. This area was anesthetized with 1% Lidocaine with epinephrine including into the carpal tunnel and the palmar subcutaneous tissue. The patient tolerated this well and once the anesthetic had setup, the procedure began. A longitudinal i ncision was made through skin only, approximately 1cm. The deep tissues were dissected bluntly. Once the A1 patric and flexor tendons were identified the soft tissue including neurovascular structures were retracted medially and laterally. There were no crossing structures over the A1 patric. The proximal edge of the patric was identified and the patric was incised with tenotomy scissors. There was a release of the tendons once this was fully released. The tendons were then removed from the wound and inspected. Excess synovium was resected. The tendons were then returned and the patient was asked to move the finger into deep flexion and back to extension. There was no recreation of the pre-operative symptoms. The hand was then once more inspected for any A0 patric or area of possible constriction. The wound was then irrigated and the skin was closed with a 4-0 Nylon. Attention was then turned to the carpal tunnel. Anesthesia was confirmed. The limb was then exsanguinated with an Esmarch. The skin was incised with a 15 blade, approximately 1cm. The skin only was cut and the deeper tissue was dissected bluntly with a tenotomy scissor, avoiding passing nerve and venous structures. The fascia was penetrated and opened bluntly. A two-prong skin hook was placed under this proximal fascial edge. A series of hamate finders were used to identify and dilate the carpal tunnel. Synovial elevator was used to free synovial attachments to the underside of the transverse carpal ligament. My thumb was kept in the palm to thu the distal extent of the carpal tunnel a nd correctly position the hand. The Microaire endoscope was inserted without difficulty and without resistance. However, there was significant synovitis within the carpal tunnel. It took a few passes to obtain visualization which showed horizontally running fibers of the transverse carpal ligament (TCL). The distal extent of the TCL was visualized and the end of the scope palpated with the thumb. The blade was elevated and withdrawn from distal to proximal. The TCL was split into two flaps. The endoscope was reinserted to confirm complete release and any remnant ligament was incised. The scope was withdrawn and the proximal aspect of the carpal tunnel was grossly inspected and appeared release with the median nerve visible. The antebrachial fascia at the level of the wrist was then freed from the overlying skin and then the underlying median nerve with blunt dissection. This was transected longitudinally for about 3cm proximal to the wrist incision. The wound was then irrigated with easy flow of irrigant distally and proximally. The incision was closed with a single 4-0 Nylon suture. The tourniquet was deflated with the initial dressing and held with some pressure. The wound was dressed with Xeroform, Gauze, Kerlix and Hong. Blood flow returned easily to all digits with capillary refill less than 2 seconds. The patient tolerated the procedure well and was returned to the Same Day Surgery area in a stable condition suffering no known complication.
== END 2024-03-03 10:20 | disposition home or self-care (01) ==
LOC: SUR 08:19
PROVIDERS: PCP Nurse Practitioner Family; Visit Provider Student in an Organized Health Care Education/Training Program
PROC: (CPT 26055; 2024-03-03 09:30)
DX: M65.331 Trigger finger, right middle finger (principal); G56.01 Carpal tunnel syndrome, right upper limb
CPT/HCPCS: 26055; 29848; J1885; J2003; J2004; J2250; J2405; J2704; J3010

== ENCOUNTER → 2024-03-12 08:42 | Outpatient (BNVA) | payer MEDICARE, MEDICAID, SELFPAY | PROVIDERS: PCP Nurse Practitioner Family; Referring Provider Nurse Practitioner Family | DX: Z47.89 Encounter for other orthopedic aftercare (principal); M79.641 Pain in right hand | CPT/HCPCS: 99024 ==

== ENCOUNTER → 2024-04-08 08:42 | Outpatient (BNVA) | payer MEDICARE, MEDICAID, SELFPAY | PROVIDERS: PCP Nurse Practitioner Family; Referring Provider Nurse Practitioner Family; Visit Provider Student in an Organized Health Care Education/Training Program | DX: Z47.89 Encounter for other orthopedic aftercare (principal); R20.0 Anesthesia of skin | CPT/HCPCS: 99024 ==

== ENCOUNTER 2024-06-04 14:36 | Outpatient (REF) | payer MEDICARE, MEDICAID, SELFPAY ==
[2024-06-04 15:13] LABS: Hemoglobin A1C 6.2 % (<5.7)
[2024-06-04 15:32] LABS: ALT 37 U/L (16-63); AST 29 U/L (15-37); Albumin 4.1 g/dL (3.4-5.0); Alkaline Phosphatase 80 U/L (46-116); Anion Gap 11.1 mmol/L (3-11); BUN 22 mg/dL (7-18); Bilirubin, Total 0.63 mg/dL (0.2-1.0); CO2 23.9 mmol/L (21.0-32.0); CREATININE 1.1 mg/dL (0.70-1.30); Calcium 9.3 mg/dL (8.5-10.1); Calculated LDL 93 mg/dL (<100); Chloride 110 mmol/L (98-107); Cholesterol 167 mg/dL (<200); Estimated GFR 70.88 (mL/min/1.73m2); Glucose 84 mg/dL (74-106); HDL Cholesterol 52 mg/dL (40-60); Potassium 4.6 mmol/L (3.5-5.1); Sodium 145 mmol/L (136-145); Total Protein 7.4 g/dL (6.4-8.2); Triglyceride 110 mg/dL (<150)
[2024-06-04 23:56] LABS: Hepatitis C Ab w Rflx HCV PCR Negative (Negative)
== END 2024-06-04 14:37 | disposition home or self-care (01) ==
LOC: NCHCN 14:36
PROVIDERS: PCP Nurse Practitioner Family; Visit Provider Nurse Practitioner Family
DX: Z00.00 Encounter for general adult medical examination without abnormal findings (principal)
CPT/HCPCS: 80053; 80061; 86803; 83036

== ENCOUNTER 2024-07-26 14:36 | Outpatient (REF) | payer MEDICARE, MEDICAID, SELFPAY ==
[2024-07-27 09:46] LABS: PSA, Screening 1.5 ng/mL (<=6.5)
== END 2024-07-26 14:37 | disposition home or self-care (01) ==
LOC: NCHCN 14:36
PROVIDERS: PCP Nurse Practitioner Family; Visit Provider Nurse Practitioner Family
DX: R35.1 Nocturia (principal)
CPT/HCPCS: 84153

== ENCOUNTER → 2025-02-21 10:33 | Outpatient (BNVA) | payer MEDICARE, MEDICAID, SELFPAY | PROVIDERS: PCP Nurse Practitioner Family; Referring Provider Nurse Practitioner Family; Visit Provider Nurse Practitioner Gerontology | DX: N40.1 Benign prostatic hyperplasia with lower urinary tract symptoms (principal); N13.8 Other obstructive and reflux uropathy; N43.3 Hydrocele, unspecified; R35.1 Nocturia; R39.9 Unspecified symptoms and signs involving the genitourinary system; I10 Essential (primary) hypertension | CPT/HCPCS: 99215; 81002; 51798 ==